=== PATIENT | female | born 1965 | race Caucasian/White ===

== ENCOUNTER 2018-03-17 21:12 | Observation (INO) | payer BC, OTHER ==
--- NOTE | 2018-03-17 21:44 | ED ---
General Adult HPI - General Chief complaint: Neuro Symptoms/Deficit Stated complaint: SOB, palpitations Time Seen by Provider: 03/17/18 21:27 Source: patient, family Mode of arrival: ambulatory Limitations: no limitations - History of Present Illness Initial comments: 's patient is a 52-year-old woman who presents to be evaluated for which she was concerned may be an anxiety attack. The patient states that she was feeling dizzy and lightheaded, she felt like her heart was racing, she got sweaty, and she noticed that both hands and both feet felt tingly. When the symptoms did not resolve after 30-40 minutes she decided to be evaluated here. The patient reports that although she does feel a little bit better the symptoms are persisting. Patient states she had a similar episode like this in June of last year which lasted for about a half hour and resolved spontaneously. She did wear a Holter monitor after that episode but did not show any abnormalities. The patient denies headache, chest pain, abdominal pain. Onset/Timin -: hour(s) Consistency: other (Improved) Improves with: none Worsens with: none Treatments Prior to Arrival: none - Related Data Home Medications Medication Instructions Recorded Confirmed Progesterone,Micronized 200 mg PO HS 03/17/18 03/17/18 [Prometrium] Spironolactone [Aldactone] 25 mg PO HS 03/17/18 03/17/18 Allergies Allergy/AdvReac Type Severity Reaction Status Date / Time No Known Allergies Allergy Verified 03/17/18 21:32 Review of Systems ROS Statement: Those systems with pertinent positive or pertinent negative responses have been documented in the HPI. ROS Other: All systems not noted in ROS Statement are negative. Constitutional: Denies: fever, chills, weakness Eyes: Denies: vision change Respiratory: Reports: dyspnea. Denies: cough, wheezes Cardiovascular: Reports: palpitations. Denies: chest pain, edema, syncope Gastrointestinal: Denies: abdominal pain, nausea, vomiting, diarrhea Genitourinary: Denies: dysuria, hematuria Musculoskeletal: Denies: back pain Skin: Denies: rash Neurological: Reports: paresthesias, vertigo. Denies: headache, weakness, numbness, confusion Psychiatric: Reports: anxiety Past Medical History Past Medical History: No Reported History History of Any Multi-Drug Resistant Organisms: None Reported Past Surgical History: No Surgical Hx Reported Past Psychological History: No Psychological Hx Reported Smoking Status: Never smoker Past Alcohol Use History: None Reported Past Drug Use History: None Reported General Exam Limitations: no limitations General appearance: alert, in no apparent distress Head exam: Present: atraumatic, normocephalic Eye exam: Present: normal appearance, PERRL, EOMI. Absent: scleral icterus, conjunctival injection ENT exam: Present: normal oropharynx Neck exam: Present: normal inspection Respiratory exam: Present: normal lung sounds bilaterally. Absent: respiratory distress, wheezes, rales, rhonchi, stridor Cardiovascular Exam: Present: normal rhythm (Rate approximately 92 of my exam), irregular rhythm, normal heart sounds. Absent: systolic murmur, diastolic murmur, rubs, gallop GI/Abdominal exam: Present: soft. Absent: distended, tenderness, guarding, rebound, rigid, mass Extremities exam: Present: normal inspection, normal capillary refill. Absent: pedal edema, calf tenderness Back exam: Present: normal inspection. Absent: CVA tenderness (R), CVA tenderness (L) Neurological exam: Present: alert Skin exam: Present: warm, dry, intact, normal color. Absent: rash Course Vital Signs 03/17/18 03/17/18 03/17/18 21:18 22:19 23:21 Temperature 97.9 F Pulse Rate 98 87 86 Respiratory 20 20 16 Rate Blood Pressure 120/75 114/77 113/98 O2 Sat by Pulse 100 99 99 Oximetry 03/18/18 00:57 Temperature Pulse Rate 79 Respiratory 18 Rate Blood Pressure 97/68 O2 Sat by Pulse 100 Oximetry EKG Findings - EKG Comments: EKG Findings:: The underlying rhythm appears to be atrial fibrillation. Rate is about 79 bpm. There are some couple beats. - EKG Results: EKG: normal axis, normal QRS, normal ST/T Medical Decision Making - Medical Decision Making Patient is a 52-year-old woman with the new onset of atrial fibrillation. Case discussed with will admit to his service. Cardiology consult pending. - Lab Data Result diagrams: 03/17/18 21:50 03/17/18 21:50 Lab Results 03/17/18 03/17/18 03/17/18 Range/Units 21:50 21:50 21:50 WBC 6.3 (3.8-10.6) k/uL RBC 4.26 (3.80-5.40) m/uL Hgb 13.6 (11.4-16.0) gm/dL Hct 39.4 (34.0-46.0) % MCV 92.6 (80.0-100.0) fL MCH 31.9 (25.0-35.0) pg MCHC 34.4 (31.0-37.0) g/dL RDW 12.1 (11.5-15.5) % Plt Count 196 (150-450) k/uL Neutrophils % 67 % Lymphocytes % 21 % Monocytes % 6 % Eosinophils % 5 % Basophils % 1 % Neutrophils # 4.2 (1.3-7.7) k/uL Lymphocytes # 1.3 (1.0-4.8) k/uL Monocytes # 0.4 (0-1.0) k/uL Eosinophils # 0.3 (0-0.7) k/uL Basophils # 0.0 (0-0.2) k/uL PT (9.0-12.0) sec INR (<1.2) APTT (22.0-30.0) sec Sodium 138 (137-145) mmol/L Potassium 3.7 (3.5-5.1) mmol/L Chloride 105 (98-107) mmol/L Carbon Dioxide 23 (22-30) mmol/L Anion Gap 10 mmol/L BUN 15 (7-17) mg/dL Creatinine 0.58 (0.52-1.04) mg/dL Est GFR (CKD-EPI)AfAm >90 (>60 ml/min/1.73 sqM) Est GFR (CKD-EPI)NonAf >90 (>60 ml/min/1.73 sqM) Glucose 156 H (74-99) mg/dL Calcium 9.7 (8.4-10.2) mg/dL Magnesium 1.7 (1.6-2.3) mg/dL Total Bilirubin 0.3 (0.2-1.3) mg/dL AST 24 (14-36) U/L ALT 31 (9-52) U/L Alkaline Phosphatase 52 (38-126) U/L Total Creatine Kinase 56 (30-135) U/L CK-MB (CK-2) <0.2 (0.0-2.4) ng/mL CK-MB (CK-2) Rel Index Troponin I <0.012 (0.000-0.034) ng/mL Total Protein 6.6 (6.3-8.2) g/dL Albumin 4.1 (3.5-5.0) g/dL TSH 2.720 (0.465-4.680) mIU/L Urine Opiates Screen (NotDetected) Ur Oxycodone Screen (NotDetected) Urine Methadone Screen (NotDetected) Ur Propoxyphene Screen (NotDetected) Ur Barbiturates Screen (NotDetected) U Tricyclic Antidepress (NotDetected) Ur Phencyclidine Scrn (NotDetected) Ur Amphetamines Screen (NotDetected) U Methamphetamines Scrn (NotDetected) U Benzodiazepines Scrn (NotDetected) Urine Cocaine Screen (NotDetected) U Marijuana (THC) Screen (NotDetected) 03/17/18 03/17/18 Range/Units 21:50 23:01 WBC (3.8-10.6) k/uL RBC (3.80-5.40) m/uL Hgb (11.4-16.0) gm/dL Hct (34.0-46.0) % MCV (80.0-100.0) fL MCH (25.0-35.0) pg MCHC (31.0-37.0) g/dL RDW (11.5-15.5) % Plt Count (150-450) k/uL Neutrophils % % Lymphocytes % % Monocytes % % Eosinophils % % Basophils % % Neutrophils # (1.3-7.7) k/uL Lymphocytes # (1.0-4.8) k/uL Monocytes # (0-1.0) k/uL Eosinophils # (0-0.7) k/uL Basophils # (0-0.2) k/uL PT 9.8 (9.0-12.0) sec INR 0.9 (<1.2) APTT 24.1 (22.0-30.0) sec Sodium (137-145) mmol/L Potassium (3.5-5.1) mmol/L Chloride (98-107) mmol/L Carbon Dioxide (22-30) mmol/L Anion Gap mmol/L BUN (7-17) mg/dL Creatinine (0.52-1.04) mg/dL Est GFR (CKD-EPI)AfAm (>60 ml/min/1.73 sqM) Est GFR (CKD-EPI)NonAf (>60 ml/min/1.73 sqM) Glucose (74-99) mg/dL Calcium (8.4-10.2) mg/dL Magnesium (1.6-2.3) mg/dL Total Bilirubin (0.2-1.3) mg/dL AST (14-36) U/L ALT (9-52) U/L Alkaline Phosphatase (38-126) U/L Total Creatine Kinase (30-135) U/L CK-MB (CK-2) (0.0-2.4) ng/mL CK-MB (CK-2) Rel Index Troponin I (0.000-0.034) ng/mL Total Protein (6.3-8.2) g/dL Albumin (3.5-5.0) g/dL TSH (0.465-4.680) mIU/L Urine Opiates Screen Not Detected (NotDetected) Ur Oxycodone Screen Not Detected (NotDetected) Urine Methadone Screen Not Detected (NotDetected) Ur Propoxyphene Screen Not Detected (NotDetected) Ur Barbiturates Screen Not Detected (NotDetected) U Tricyclic Antidepress Not Detected (NotDetected) Ur Phencyclidine Scrn Not Detected (NotDetected) Ur Amphetamines Screen Not Detected (NotDetected) U Methamphetamines Scrn Not Detected (NotDetected) U Benzodiazepines Scrn Not Detected (NotDetected) Urine Cocaine Screen Not Detected (NotDetected) U Marijuana (THC) Screen Not Detected (NotDetected) Disposition Clinical Impression: Atrial fibrillation Disposition: ADMITTED IP TO THIS HOSP Condition: Fair Is patient prescribed a controlled substance at d/c from ED?: No
[2018-03-17] MEDS ORDERED: ASPIRIN 81 MG PO STA (21:48)
[2018-03-17 22:01] LABS: Basophils % (A) 1 %; Eosinophils # (A) 0.3 k/uL (0-0.7); Eosinophils % (A) 5 %; HCT 39.4 % (34.0-46.0); HGB 13.6 gm/dL (11.4-16.0); Lymphocytes # (A) 1.3 k/uL (1.0-4.8); Lymphocytes % (A) 21 %; MCH 31.9 pg (25.0-35.0); MCHC 34.4 g/dL (31.0-37.0); MCV 92.6 fL (80.0-100.0); Mean Platelet Volume 7.4; Monocytes # (A) 0.4 k/uL (0-1.0); Monocytes % (A) 6 %; Neutrophils # (A) 4.2 k/uL (1.3-7.7); Neutrophils % (A) 67 %; Platelet Count 196 k/uL (150-450); RBC 4.26 m/uL (3.80-5.40); RDW 12.1 % (11.5-15.5); WBC 6.3 k/uL (3.8-10.6)
[2018-03-17 22:12] LABS: ALT 31 U/L (9-52); AST 24 U/L (14-36); Albumin 4.1 g/dL (3.5-5.0); Alkaline Phosphatase 52 U/L (38-126); Anion Gap 10 mmol/L; Blood Urea Nitrogen 15 mg/dL (7-17); Calcium 9.7 mg/dL (8.4-10.2); Carbon Dioxide 23 mmol/L (22-30); Chloride 105 mmol/L (98-107); Glucose 156 mg/dL (74-99); INR 0.9 (<1.2); Magnesium 1.7 mg/dL (1.6-2.3); Partial Thromboplastin Time 24.1 sec (22.0-30.0); Potassium 3.7 mmol/L (3.5-5.1); Prothrombin Time 9.8 sec (9.0-12.0); Sodium 138 mmol/L (137-145); Total Bilirubin 0.3 mg/dL (0.2-1.3); Total Protein 6.6 g/dL (6.3-8.2)
--- NOTE | 2018-03-17 22:16 | XR ---
EXAMINATION TYPE: XR chest 2V DATE OF EXAM: 03/17/2018 COMPARISON: NONE HISTORY: Dizziness TECHNIQUE: Frontal and lateral views of the chest are obtained. FINDINGS: Heart and mediastinum are normal. Lungs are clear. Diaphragm is normal. Bony thorax is int act. There are chest leads. IMPRESSION: Normal chest.
[2018-03-17 22:23] LABS: Creatine Kinase 56 U/L (30-135)
[2018-03-17 22:37] LABS: Creatine Kinase MB <0.2 ng/mL (0.0-2.4); Troponin I <0.012 ng/mL (0.000-0.034)
[2018-03-17] MEDS ORDERED: ONDANSETRON 4 MG/2 ML VIAL IVP STA (23:05)
[2018-03-17] MEDS ORDERED: PROMETHAZINE 25 MG TAB PO STA (23:47)
[2018-03-17] MEDS ORDERED: SODIUM CHLORIDE 0.9% 500 ML 500 ML IV STA (23:48)
[2018-03-17] MEDS ORDERED: ENOXAPARIN 60 MG/0.6 ML SYRINGE SQ STA (23:49)
[2018-03-17] MEDS ORDERED: DILTIAZEM DRIP BOLUS FROM BAG 1 MG SOLN IV ONE (23:50)
[2018-03-17 23:57] LABS: Amphetamine Screen,Urine Not Detected (NotDetected); Barbiturate Screen,Urine Not Detected (NotDetected); Benzodiazepines Screen,Urine Not Detected (NotDetected); Cocaine Screen,Urine Not Detected (NotDetected); Methadone Screen, Urine Not Detected (NotDetected); Opiate Screen,Urine Not Detected (NotDetected); Oxycodone Screen, Urine Not Detected (NotDetected); Phencyclidine Screen,Urine Not Detected (NotDetected); Tricyclic Antidepressant,Urine Not Detected (NotDetected); Urn Cannabinoid Scrn Not Detected (NotDetected)
[2018-03-18] MEDS ORDERED: NITROGLYCERIN SL TABS 0.4 MG TAB SUBLINGUAL PRN (00:22)
[2018-03-18] MEDS: DILTIAZEM 50 MG in SODIUM CHLORIDE 0.9% 40 ML IV SCH ×2 (00:50→10:56)
[2018-03-18 01:11] LABS: Creatine Kinase 57 U/L (30-135)
[2018-03-18 01:24] LABS: Creatine Kinase MB <0.2 ng/mL (0.0-2.4); Troponin I <0.012 ng/mL (0.000-0.034)
[2018-03-18 01:29] VITALS: BMI 20.2
[2018-03-18 04:59] VITALS: TEMP 97.4
--- NOTE | 2018-03-18 09:55 | P.CRDCN ---
History of Present Illness Consult date: 03/18/18 Requesting physician: Kvng Dangelo Consult reason: atrial fibrillation Chief complaint: Palpitations History of present illness: This is a 52-year-old female with no prior documented history of hypertension, no diabetes, no hyperlipidemia, nonsmoker, rare EtOH, who drinks 2 cups of coffee per day, she presented to the hospital with symptoms of dizziness episode of vomiting, palpitations and feeling her heart racing fast. According to the patient, she's been told in the past to have anxiety attacks, she may mimic the symptoms exactly she also states that she has worn a monitor in the past for one week, that did not detect any irregular heartbeat. Her EKG on arrival here showed atrial fibrillation, he was initiated on IV Cardizem, has since converted to normal sinus rhythm. Thyroid level is normal. Troponins negative 2. Sodium 138, potassium 3.7, BUN 15, creatinine 0.5. Magnesium 1.7. White blood cell count 6.3, hemoglobin 13.6, platelet count 196. Drug screen is negative. Blood pressure on admission 120/70 with a heart rate of 98, 100% on room air. Blood pressure this morning 92/60 with a heart rate of 80, 97% on room air. At the time of my examination this morning, patient feels well, denies any palpitations, no dizziness or lightheadedness. Past Medical History Past Medical History: No Reported History History of Any Multi-Drug Resistant Organisms: None Reported Past Surgical History: No Surgical Hx Reported Additional Past Surgical History / Comment(s): lipoma removed from left armpit Past Anesthesia/Blood Transfusion Reactions: No Reported Reaction Past Psychological History: No Psychological Hx Reported Smoking Status: Never smoker Past Alcohol Use History: None Reported Past Drug Use History: None Reported Medications and Allergies Home Medications Medication Instructions Recorded Confirmed Type Progesterone,Micronized 200 mg PO HS 03/17/18 03/17/18 History [Prometrium] Spironolactone [Aldactone] 25 mg PO HS 03/17/18 03/17/18 History Allergies Allergy/AdvReac Type Severity Reaction Status Date / Time No Known Allergies Allergy Verified 03/17/18 21:32 Physical Exam Vitals: Vital Signs Temp Pulse Pulse Resp BP BP Pulse Ox 03/18/18 04:00 97.4 F L 92 18 92/60 97 03/18/18 01:22 97.6 F 96 18 100/64 99 03/18/18 01:20 96 18 03/18/18 00:57 79 18 97/68 100 03/17/18 23:21 86 16 113/98 99 03/17/18 22:19 87 20 114/77 99 03/17/18 21:18 97.9 F 98 20 120/75 100 Intake and Output 03/17/18 03/18/18 03/18/18 22:59 06:59 14:59 Intake Total 23.667 180 Balance 23.667 180 Intake: Intake, IV Titration 23.667 Amount Diltiazem 50 mg In Sodium 23.667 Chloride 0.9% 40 ml @ 5 MG/HR 5 mls/hr IV .Q10H [facility] Rx#:[id number] Oral 180 Other: Voiding Method Toilet # Voids 1 Weight 48.534 kg 50.2 kg PHYSICAL EXAMINATION: GENERAL: 52-year-old female in no acute distress at the time of my examination HEENT: Head is atraumatic, normocephalic. Pupils equal, round. Sclera anicteric. Conjunctiva are clear. Mucous membranes of the mouth are moist. Neck is supple. There is no elevated jugular venous pressure. No carotid bruit is heard. HEART EXAMINATION: Heart S1, S2 normal. No murmur or gallop heard. CHEST EXAMINATION: Lungs are clear to auscultation and precussion. No chest wall tenderness is noted on palpation or with deep breathing. ABDOMEN: Soft, nontender. Bowel sounds are heard. No organomegaly noted. EXTREMITIES: 2+ peripheral pulses with no evidence of peripheral edema and no calf tenderness noted. NEUROLOGIC patient is awake, alert and oriented 3 . . Results 03/17/18 21:50 03/17/18 21:50 Cardiac Enzymes 03/17/18 03/17/18 03/18/18 Range/Units 21:50 21:50 00:39 AST 24 (14-36) U/L CK-MB (CK-2) <0.2 <0.2 (0.0-2.4) ng/mL Troponin I <0.012 <0.012 (0.000-0.034) ng/mL Coagulation 03/17/18 Range/Units 21:50 PT 9.8 (9.0-12.0) sec APTT 24.1 (22.0-30.0) sec CBC 03/17/18 Range/Units 21:50 WBC 6.3 (3.8-10.6) k/uL RBC 4.26 (3.80-5.40) m/uL Hgb 13.6 (11.4-16.0) gm/dL Hct 39.4 (34.0-46.0) % Plt Count 196 (150-450) k/uL Comprehensive Metabolic Panel 03/17/18 Range/Units 21:50 Sodium 138 (137-145) mmol/L Potassium 3.7 (3.5-5.1) mmol/L Chloride 105 (98-107) mmol/L Carbon Dioxide 23 (22-30) mmol/L BUN 15 (7-17) mg/dL Creatinine 0.58 (0.52-1.04) mg/dL Glucose 156 H (74-99) mg/dL Calcium 9.7 (8.4-10.2) mg/dL AST 24 (14-36) U/L ALT 31 (9-52) U/L Alkaline Phosphatase 52 (38-126) U/L Total Protein 6.6 (6.3-8.2) g/dL Albumin 4.1 (3.5-5.0) g/dL Current Medications Generic Name Dose Route Start Last Admin Trade Name Freq PRN Reason Stop Dose Admin Aspirin 325 mg 03/19/18 09:00 Aspirin PO DAILY JANICE Diltiazem HCl 50 mg/ Sodium 50 mls @ 5 mls/hr 03/17/18 23:45 03/18/18 05:34 Chloride IV 0 mg/hr .Q10H JANICE 0 mls/hr Infusion 5 MG/HR Nitroglycerin 0.4 mg 03/18/18 00:22 Nitrostat SUBLINGUAL Q5M PRN Chest Pain Non-Formulary Medication 200 mg 03/18/18 21:00 Progesterone,Micronized [Prometrium] PO HS JANICE Spironolactone 25 mg 03/18/18 21:00 Aldactone PO HS JANICE Intake and Output 03/17/18 03/18/18 03/18/18 22:59 06:59 14:59 Intake Total 23.667 180 Balance 23.667 180 Intake: Intake, IV Titration 23.667 Amount Diltiazem 50 mg In Sodium 23.667 Chloride 0.9% 40 ml @ 5 MG/HR 5 mls/hr IV .Q10H [facility] Rx#:[id number] Oral 180 Other: Voiding Method Toilet # Voids 1 Weight 48.534 kg 50.2 kg 03/17/18 21:50 03/17/18 21:50 EKG Interpretations (text) Initial EKG shows atrial fibrillation Assessment and Plan Plan: Assessment and plan #1 atrial fibrillation, currently in normal sinus rhythm. #2 cardiac risk factors negative for hypertension, no diabetes, no hyperlipidemia, nonsmoker, rare EtOH, no excessive caffeine use. Plan We will obtain an echocardiogram with Doppler study. TSH level is normal. Discontinue IV Cardizem drip. CHADS VASC score of one, we will decrease aspirin 81 mg daily. If the patient's LV function is normal, consider pill in the pocket with flecainide or Rythmol. Further recommendations to follow. DNP note has been reviewed, I agree with a documented findings and plan of care. Patient was seen and examined.
[2018-03-18] MEDS ORDERED: FLECAINIDE 50 MG TAB PO STA (11:10)
[2018-03-18 11:27] VITALS: BP 111/67; PULSE 62; RESP 16
[2018-03-18 11:53] LABS: Creatine Kinase 53 U/L (30-135)
[2018-03-18 12:06] LABS: Creatine Kinase MB <0.2 ng/mL (0.0-2.4); Troponin I <0.012 ng/mL (0.000-0.034)
--- NOTE | 2018-03-18 12:30 | ECHOF ---
Referral Reason:afib MEASUREMENTS -------- HEIGHT: 154.9 cm WEIGHT: 49.9 kg BP: 92/60 RVIDd: 2.1 cm (< 3.3) IVSd: 0.7 cm (0.6 - 1.1) LVIDd: 4.1 cm (3.9 - 5.3) LVPWd: 0.7 cm (0.6 - 1.1) IVSs: 0.9 cm LVIDs: 3.0 cm LVPWs: 0.9 cm LAESV Index (A-L): 15.80 ml/m Ao Diam: 3.2 cm (2.0 - 3.7) AV Cusp: 1.6 cm (1.5 - 2.6) LA Diam: 1.9 cm (2.7 - 3.8) MV E Sarath: 0.82 m/s MV DecT: 195 ms MV A Sarath: 0.52 m/s MV E/A Ratio: 1.59 RAP: 10.00 mmHg RVSP: 21.43 mmHg FINDINGS -------- Resting bradycardia (HR<60bpm). This was a technically good study. The left ventricular size is normal. Left ventricular wall thickness is normal. Overall left vent ricular systolic function is normal with, an EF between 55 - 60 %. The right ventricle is normal in size and function. Normal LA size by volume 22+/-6 ml/m2. The right atrium is normal in size. Aortic valve is trileaflet and is mildly thickened. There is no evidence of aortic regurgitation. There is no evidence of aortic stenosis. The mitral valve leaflets are mildly thickened. There is trace to mild mitral regurgitation. Trace tricuspid regurgitation present. Right ventricular systolic pressure is normal at < 35 mmHg. There is no evidence of pulmonary hypertension. The pulmonic valve was not well visualized. The aortic root size is normal. The IVC is dilated with normal collapse. There is no pericardial effusion. CONCLUSIONS -------- 1. Resting bradycardia (HR<60bpm). 2. This was a technically good study. 3. The left ventricular size is normal. 4. Left ventricular wall thickness is normal. 5. Overall left ventricular systolic function is normal with, an EF between 55 - 60 %. 6. Normal LA size by volume 22+/-6 ml/m2. 7. Aortic valve is trileaflet and is mildly thickened. 8. The mitral valve leaflets are mildly thickened. 9. There is trace to mild mitral regurgitation. 10. Trace tricuspid regurgitation present. 11. Right ventricular systolic pressure is normal at < 35 mmHg. 12. There is no evidence of pulmonary hypertension. 13. The pulmonic valve was not well visualized. 14. The aortic root size is normal. 15. The IVC is dilated with normal collapse. 16. There is no pericardial effusion. ADVERTISER: Adi Price RDCS
[2018-03-18 17:39] LABS: Hemoglobin A1C 5.3 % (4.0-6.0)
--- NOTE | 2018-03-18 18:27 | DS ---
DISCHARGE SUMMARY HISTORY PHYSICAL AND DISCHARGE SUMMARY: DATE OF ADMISSION: 03/18/2018 DATE OF DISCHARGE: 03/18/2018 FINAL DIAGNOSES: 1. Paroxysmal atrial fibrillation. 2. IV Cardizem drip. 3. Hyperglycemia, not diabetic. Not a Type 1, not Type 2. HOSPITAL COURSE: This pleasant lady of Dr. Turner whose voluntarily trying to lose weight has lost about 45 pounds from exercising and cutting back on the diet. Presented with episode yesterday when she became dizzy, vomited, heart racing, palpitation. The patient presented to the ER and was found to be in atrial fibrillation. The patient is on Cardizem drip and earlier today the patient reverted into sinus rhythm. The patient may have had episodes like this before. The patient does take a health supplement, herbal medicine through [employer]. denies taking excessive caffeine or any other over-the- counter medications. The patient does take Aldactone for acne. No prior cardiac history. Pretty active and healthy otherwise. REVIEW OF SYSTEMS: CONSTITUTIONAL: None. HEENT: None. RESPIRATORY: None. CARDIOVASCULAR: As above GASTROINTESTINAL: None. GENITOURINARY: None. MUSCULOSKELETAL none. Dermatologic, hematologic and lymphatic none. PSYCHIATRY none. NEUROLOGICAL none. PAST MEDICAL HISTORY: Acne and post menopausal symptoms. PAST SURGICAL HISTORY: Lipoma removed from the left arm pit. SOCIAL HISTORY: Does not smoke. Alcohol rarely. 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 . FAMILY HISTORY: Reviewed, noncontributory to presentation. HOME MEDICATIONS: 1. Aldactone 25 mg q.h.s. 2. Progesterone micronized 200 mg q.h.s. ALLERGIES: None. PHYSICAL EXAMINATION: VITAL SIGNS: Afebrile, pulse 62, respirations 16, blood pressure 111/67, pulse ox 100 percent on room air. GENERAL APPEARANCE: Average build, lying in bed, comfortable. EYES: Pupils equal. Conjunctivae normal. HEENT: External appearance of nose and ears normal. Oral cavity normal. NECK JVD not raised. Mass not palpable. RESPIRATORY: Effort normal. LUNGS are clear. CARDIOVASCULAR: 1st and 2nd sounds normal. No edema. ABDOMEN: Soft, nontender. Liver and spleen not palpable. LYMPHATICS: No lymph nodes palpable in the neck and axillae. PSYCHIATRY: Alert and oriented x3. Mood and affect normal. NEUROLOGICAL: Pupils equal. Cranial nerves grossly intact. Power and sensation grossly intact. INVESTIGATIONS: White count 6.3, potassium 3.7. BUN and creatinine is normal. Random glucose is 156. Troponin x3 negative. TSH normal at 2.7. EKG tracing personally reviewed by me shows atrial fibrillation rate was controlled. Chest x-ray film personally reviewed by me shows lung oates to be clear. Some flattening of the diaphragm. ASSESSMENT: 1. Paroxysmal atrial fibrillation rapid ventricular rate, put on IV Cardizem drip. Patient did revert to sinus rhythm. 2. IV Cardizem drip monitoring. PLAN: Patient is started on IV Cardizem drip, then is taken off. The patient's Sadi S2V2 score is only 1. The patient is seen by Cardiology earlier today. I made the patient take two laps around on the cardiology floor. Patient had no further symptoms. No tachycardia. 2D echocardiogram came back showing normal left atrial chamber. The patient's care was discussed with the patient's . Questions were answered. CONSULTATION: Dr. Mccormack from Cardiology. DISCHARGE MEDICATIONS: 1. Progesterone. 2. Prometrium 200 mg p.o. at bedtime. 3. Aldactone 25 mg q.h.s. 4. Aspirin 81 mg p.o. daily. 5. Flecainide 50 mg p.o. daily p.r.n. FOLLOWUP: Follow up with Dr. Mccormack on 03/26/2018, follow up with Dr. Wilder Turner in [place] on 03/25/2018. Copy to Dr. Turner. This is both a history physical and discharge summary on [facility]. Additional note: Did discuss with the patient and to make sure that the patient's herbal supplement she is getting over the counter is verified. About the authenticity of the same. MMODL / IJN: [id number] /
[2018-03-18] MEDS ORDERED: SPIRONOLACTONE 25 MG TAB PO SCH (21:00)
[2018-03-18] MEDS ORDERED: PROGESTERONE MICRONIZED 200 MG PO SCH (21:00)
[2018-03-19] MEDS ORDERED: ASPIRIN 81 MG PO SCH (09:00)
[2018-03-19] MEDS ORDERED: ASPIRIN 325 MG TAB PO SCH (09:00)
== END 2018-03-18 16:49 | disposition home or self-care (01) ==
LOC: EC 21:12 → 3SCARD 03-18 00:27 → INTOOBSV 03-18 00:27
PROVIDERS: ADMIT Hospitalist; ATTEND Hospitalist
DX: I48.0 Paroxysmal atrial fibrillation (principal); R73.9 Hyperglycemia, unspecified; L70.9 Acne, unspecified; Z78.0 Asymptomatic menopausal state; Z79.899 Other long term (current) drug therapy; F41.9 Anxiety disorder, unspecified
CPT/HCPCS: 96366; 96376; 96365; 96372; 96375; 99285; 36415; 93005; 93306; 80053; 82550 ×2; 82553 ×2; 83735; 84443; 84484 ×2; 85025; 85610; 85730; 80306; 83036; 71046; G0378; J2405; J1650

== ENCOUNTER 2018-05-20 07:20 | Day surgery (SDC) | payer BC ==
[2018-05-15 14:29] VITALS: BMI 20.9
[~2018-05-20 07:20] MED LIST: LACTATED RINGERS 1,000 ML IV SCH
[2018-05-20] MEDS ORDERED: LACTATED RINGERS 1,000 ML IV ONE (07:33)
[2018-05-20 07:41] VITALS: TEMP 98.4
[2018-05-20] MEDS ORDERED: PROPOFOL 10 MG/ML 20 ML VIAL IV ONE (08:00)
[2018-05-20] MEDS ORDERED: LIDOCAINE 1% INJ 10MG/ML (20 ML MDV) ONE (08:00)
[2018-05-20 08:33] VITALS: RESP 16
--- NOTE | 2018-05-20 08:41 | P.PCN ---
Date of Procedure: 05/20/18 Procedure(s) Performed: Procedure: Total colonoscopy. Preoperative diagnosis: Positive cologuard test. Postoperative diagnosis: Exam within normal limits. Preparation: HalfLytely prep. Sedation: Was provided by anesthesia. Brief clinical history: The patient is a 52-year-old female who is scheduled for this evaluation because of recent positive cologuard test. She had a colonoscopy around 5 years ago. She has no abdominal complaints, bleeding or anemia. Procedure: With the patient on her left lateral decubitus position and after informed consent and adequate sedation, the perianal area was inspected and it did not show any fissures or fistulas. There were no masses felt on digital rectal examination. The Olympus CFH 190L video colonoscope was then inserted in the rectum in the usual fashion and advanced to the cecum. The mucosa appeared healthy. No polyps or tumors were seen or any obvious diverticular disease. No bleeding. I retroflexed the endoscope in the rectum before the endoscope was withdrawn. The patient tolerated the procedure well. Plan: The patient was reassured. In the absence of upper GI complaints or anemia, I did not recommend any further workup at this time. She will follow-up with you as planned and further plans based on her course. For screening for colon cancer I recommended repeat colonoscopy in 10 years.
[2018-05-20 08:53] VITALS: BP 109/72; PULSE 77
== END 2018-05-20 09:18 | disposition home or self-care (01) ==
LOC: ORWHC2ENDO 07:20
DX: Z12.11 Encounter for screening for malignant neoplasm of colon (principal); Z87.891 Personal history of nicotine dependence; Z79.899 Other long term (current) drug therapy; Z87.442 Personal history of urinary calculi
CPT/HCPCS: 81025; J2001; J2704; G0121

== ENCOUNTER 2022-03-01 20:20 | Emergency (ER) | payer BC ==
[2022-03-01] MEDS ORDERED: SODIUM CHLORIDE 0.9% 1,000 ML IV ONE (21:40)
--- NOTE | 2022-03-01 22:11 | ED ---
General Adult HPI - General Chief complaint: Abdominal Pain Stated complaint: abd pain/side Time Seen by Provider: 03/01/22 20:39 Source: patient, RN notes reviewed Mode of arrival: ambulatory Limitations: no limitations - History of Present Illness Initial comments: 56-year-old female with a past medical history of atrial fibrillation presents to the emergency department with a chief complaint of right upper quadrant pain. 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 It has since resolved on its own. She denies currently experiencing the pain upon obtaining the history. She has not tried anything for his symptoms she does not like taking Tylenol for her pain. The pain does not radiate anywhere else. She denies any fever, chills, cough, chest pain, palpitations, shortness of breath, nausea, vomiting, diarrhea, melena, hematochezia, dysuria, flank pain, hematuria. - Related Data Home Medications Medication Instructions Recorded Confirmed Progesterone, Micronized 200 mg PO HS 03/17/18 05/20/18 [Prometrium] Spironolactone [Aldactone] 12.5 mg PO HS 03/17/18 05/20/18 Allergies Allergy/AdvReac Type Severity Reaction Status Date / Time No Known Allergies Allergy Verified 03/01/22 20:35 Review of Systems ROS Statement: Those systems with pertinent positive or pertinent negative responses have been documented in the HPI. ROS Other: All systems not noted in ROS Statement are negative. Past Medical History Past Medical History: Atrial Fibrillation Additional Past Medical History / Comment(s): NEW ONSET A-FIB 03/18/18, RESOLVED, HAD F/U WITH DR ROUSE, ECHO NL. HX KIDNEY STONES X2. OCC VERTIGO. POS COLOGUARD TEST. History of Any Multi-Drug Resistant Organisms: None Reported Past Surgical History: No Surgical Hx Reported Additional Past Surgical History / Comment(s): Lipoma removed from left armpit. COLONOSCOPY. Past Anesthesia/Blood Transfusion Reactions: No Reported Reaction, Motion Sickness Past Psychological History: No Psychological Hx Reported Smoking Status: Never smoker Past Alcohol Use History: None Reported Past Drug Use History: Marijuana - Past Family History Mother Family Medical History: No Reported History General Exam Limitations: no limitations General appearance: alert, in no apparent distress Head exam: Present: atraumatic, normocephalic, normal inspection Eye exam: Present: normal appearance, PERRL, EOMI. Absent: scleral icterus, conjunctival injection, periorbital swelling ENT exam: Present: normal exam, mucous membranes moist Neck exam: Present: normal inspection. Absent: tenderness, meningismus, lymphadenopathy Respiratory exam: Present: normal lung sounds bilaterally. Absent: respiratory distress, wheezes, rales, rhonchi, stridor Cardiovascular Exam: Present: regular rate, normal rhythm, normal heart sounds. Absent: systolic murmur, diastolic murmur, rubs, gallop, clicks GI/Abdominal exam: Present: soft, tenderness (Mild RUQ, Hawkins sign negative), normal bowel sounds. Absent: distended, guarding, rebound, rigid Extremities exam: Present: normal inspection, full ROM, normal capillary refill. Absent: tenderness, pedal edema, joint swelling, calf tenderness Back exam: Present: normal inspection Neurological exam: Present: alert, oriented X3, CN II-XII intact Psychiatric exam: Present: normal affect, normal mood Skin exam: Present: warm, dry, intact, normal color. Absent: rash Course Vital Signs 03/01/22 20:32 Temperature 98.2 F Pulse Rate 51 L Respiratory 16 Rate Blood Pressure 154/72 O2 Sat by Pulse 100 Oximetry EKG Findings - EKG Comments: EKG Findings:: Interpreted the following: EKG performed at 21:51. Rate 53 bpm, sinus bradycardia. NJ interval 171, QRS duration 83/QTC was 452/436 Medical Decision Making - Medical Decision Making Was pt. sent in by a medical professional or institution (, PA, FUSE MAKER, urgent care, hospital, or senior living...) When possible be specific @ -[No] Did you speak to anyone other than the patient for history (EMS, parent, family, police, friend...)? What history was obtained from this source @ -[No] Did you review nursing and triage notes (agree or disagree)? Why? @ -[I reviewed and agree with nursing and triage notes] Were old charts reviewed (outside hosp., previous admission, EMS record, old EKG, old radiological studies, urgent care reports/EKG's, senior living records)? Report findings @ -[No old charts were reviewed] Differential Diagnosis (chest pain, altered mental status, abdominal pain women, abdominal pain men, vaginal bleeding, weakness, fever, dyspnea, syncope, headache, dizziness, GI bleed, back pain, seizure, CVA, palpatations, mental health)? @ -[not applicable] EKG interpreted by me (3pts min.). @ -[As above] X-rays interpreted by me (1pt min.). @ -[None done] CT interpreted by me (1pt min.). @ -[None done] U/S interpreted by me (1pt. min.). @ -US gallbladder reveals 1 non-obstructing stone What testing was considered but not performed or refused? (CT, X-rays, U/S, labs)? Why? @ -[None] What meds were considered but not given or refused? Why? @ -[None] Did you discuss the management of the patient with other professionals (professionals i.e. , PA, FUSE MAKER, lab, RT, psych nurse, social studies department chair, motor lodge clerk, teacher, geographic area intelligence officer, housing case manager)? Give summary @ -[No] Was smoking cessation discussed for >3mins.? @ -[No] Was critical care preformed (if so, how long)? @ -[No] Were there social determinants of health that impacted care today? How? (Homelessness, low income, unemployed, alcoholism, drug addiction, transportation, low edu. Level, literacy, decrease access to med. care, custodial, rehab)? @ -[No] Was there de-escalation of care discussed even if they declined (Discuss DNR or withdrawal of care, Hospice)? DNR status @ -[No] What co-morbidities impacted this encounter? (DM, HTN, Smoking, COPD, CAD, Cancer, CVA, ARF, Chemo, Hep., AIDS, mental health diagnosis, sleep apnea, morbid obesity)? @ -[None] Was patient admitted / discharged? Hospital course, mention meds given and route, prescriptions, significant lab abnormalities, going to OR and other pertinent info. @ 56-year-old female presents to the emergency department with RUQ pain. She had a history and physical performed while in the emergency department physical exam essenitally unremarkable. . He was encouraged to follow up with his primary care doctor within 1-2 days if symptoms worsen or persist. She was given a referral to Dr. Lopez, General surgery. Return precautions were discussed. Patient was discharged in stable condition all questions and comments were addressed. I discussed the case with Dr. Cook P who agrees with the plan of care. Undiagnosed new problem with uncertain prognosis? @ -[No] Drug Therapy requiring intensive monitoring for toxicity (Heparin, Nitro, Insulin, Cardizem)? @ -[No] Were any procedures done? @ -[No] Diagnosis/symptom? @ -biliary colic Acute, or Chronic, or Acute on Chronic? @acute Uncomplicated (without systemic symptoms) or Complicated (systemic symptoms)? @ uncomplicated Side effects of treatment? @ -[No] Exacerbation, Progression, or Severe Exacerbation? @ -[No] Poses a threat to life or bodily function? How? (Chest pain, [place], [place], pneumonia, PE, COPD, DKA, ARF, appy, cholecystitis, CVA, Diverticulitis, Homicidal, Suicidal, threat to staff... and all critical care pts) @ -[No] - Lab Data Result diagrams: 03/01/22 22:04 03/01/22 22:04 Lab Results 03/01/22 03/01/22 03/01/22 Range/Units 22:04 22:04 22:30 WBC 7.1 (3.8-10.6) k/uL RBC 4.13 (3.80-5.40) m/uL Hgb 13.0 (11.4-16.0) gm/dL Hct 37.2 (34.0-46.0) % MCV 90.2 (80.0-100.0) fL MCH 31.5 (25.0-35.0) pg MCHC 34.9 (31.0-37.0) g/dL RDW 11.8 (11.5-15.5) % Plt Count 183 (150-450) k/uL MPV 7.7 Neutrophils % 78 % Lymphocytes % 14 % Monocytes % 4 % Eosinophils % 2 % Basophils % 1 % Neutrophils # 5.6 (1.3-7.7) k/uL Lymphocytes # 1.0 (1.0-4.8) k/uL Monocytes # 0.3 (0-1.0) k/uL Eosinophils # 0.2 (0-0.7) k/uL Basophils # 0.0 (0-0.2) k/uL Sodium 139 (137-145) mmol/L Potassium 3.8 (3.5-5.1) mmol/L Chloride 106 (98-107) mmol/L Carbon Dioxide 27 (22-30) mmol/L Anion Gap 6 mmol/L BUN 12 (7-17) mg/dL Creatinine 0.72 (0.52-1.04) mg/dL Est GFR (CKD-EPI)AfAm >90 (>60 ml/min/1.73 sqM) Est GFR (CKD-EPI)NonAf >90 (>60 ml/min/1.73 sqM) Glucose 108 H (74-99) mg/dL Plasma Lactic Acid Anselmo 1.1 (0.7-2.0) mmol/L Calcium 9.2 (8.4-10.2) mg/dL Total Bilirubin 0.4 (0.2-1.3) mg/dL AST 25 (14-36) U/L ALT 30 (4-34) U/L Alkaline Phosphatase 75 (38-126) U/L Total Protein 6.5 (6.3-8.2) g/dL Albumin 4.2 (3.5-5.0) g/dL Lipase 102 (23-300) U/L Disposition Clinical Impression: Biliary colic Disposition: HOME SELF-CARE Condition: Stable Instructions (If sedation given, give patient instructions): Biliary Colic (ED), Gallstones (ED) Additional Instructions: Please return to the nearest emergency department if worsening fevers, jaundice, abdominal pain develope Is patient prescribed a controlled substance at d/c from ED?: No Referrals: Wilder Turner MD [Primary Care Provider] - 1-2 days Rob Lopez MD [Medical Doctor] - 1-2 days Time of Disposition: 23:34
[2022-03-01 22:27] LABS: Basophils % (A) 1 %; Eosinophils # (A) 0.2 k/uL (0-0.7); Eosinophils % (A) 2 %; HCT 37.2 % (34.0-46.0); Lymphocytes % (A) 14 %; MCH 31.5 pg (25.0-35.0); MCHC 34.9 g/dL (31.0-37.0); MCV 90.2 fL (80.0-100.0); Mean Platelet Volume 7.7; Monocytes # (A) 0.3 k/uL (0-1.0); Monocytes % (A) 4 %; Neutrophils # (A) 5.6 k/uL (1.3-7.7); Neutrophils % (A) 78 %; Platelet Count 183 k/uL (150-450); RBC 4.13 m/uL (3.80-5.40); RDW 11.8 % (11.5-15.5); WBC 7.1 k/uL (3.8-10.6)
[2022-03-01 22:40] LABS: ALT 30 U/L (4-34); AST 25 U/L (14-36); African American GFR (CKD) >90 (>60 ml/min/1.73 sqM); Albumin 4.2 g/dL (3.5-5.0); Alkaline Phosphatase 75 U/L (38-126); Anion Gap 6 mmol/L; Blood Urea Nitrogen 12 mg/dL (7-17); Calcium 9.2 mg/dL (8.4-10.2); Carbon Dioxide 27 mmol/L (22-30); Chloride 106 mmol/L (98-107); Glucose 108 mg/dL (74-99); Lipase 102 U/L (23-300); Non-African American GFR(CKD) >90 (>60 ml/min/1.73 sqM); Potassium 3.8 mmol/L (3.5-5.1); Sodium 139 mmol/L (137-145); Total Bilirubin 0.4 mg/dL (0.2-1.3); Total Protein 6.5 g/dL (6.3-8.2)
--- NOTE | 2022-03-01 22:56 | US ---
EXAMINATION TYPE: US gallbladder DATE OF EXAM: 03/01/2022 COMPARISON: NONE CLINICAL HISTORY: RUQ pain. On and off RUQ pain TECHNIQUE: Multiple sonographic images of the right upper quadrant are obtained. FINDINGS: EXAM MEASUREMENTS: Liver Length: 14.5 cm Gallbladder Wall: 0.21 cm CBD: 0.25 cm Right Kidney: 9.6 x 4.2 x 5.0 cm ELECTRICAL LOGGING ENGINEER NOTES: Pancreas: Tail obscured by overlying bowel gas, other parts visualized appear wnl Liver: wnl Gallbladder: One large gallstone visualized measuring 1.4cm Evidence for sonographic Hawkins's sign: No CBD: wnl Right Kidney: wnl IMPRESSION: Single large gallstone. No dilated ducts. No focal liver defect.
[2022-03-01 23:51] VITALS: BP 128/67; PULSE 72; RESP 18; TEMP 98.7
== END 2022-03-01 23:51 | disposition home or self-care (01) ==
LOC: EC 20:20
DX: K80.50 Calculus of bile duct without cholangitis or cholecystitis without obstruction (principal); I48.91 Unspecified atrial fibrillation; F12.90 Cannabis use, unspecified, uncomplicated; Z79.899 Other long term (current) drug therapy
CPT/HCPCS: 36415; 76705; 80053; 83605; 83690; 85025; 93005; 96360; 99284